=== PATIENT | female | born 1985 | race Caucasian/White ===

== ENCOUNTER 2017-02-20 06:41 | Day surgery (SDC) | payer MEDICAID ==
[~2017-02-20] VITALS: Ht 152.4 cm; Wt 50.8 kg
== END 2017-02-20 11:05 | disposition short-term general hospital (02) ==
LOC: SURGOP 06:41
PROC: 0SBD4ZZ Excision of Left Knee Joint, Percutaneous Endoscopic Approach (ICD-10-PCS; principal; 2017-02-20)
DX: M25.862 Other specified joint disorders, left knee (principal); F17.210 Nicotine dependence, cigarettes, uncomplicated; Z79.891 Long term (current) use of opiate analgesic; Z98.890 Other specified postprocedural states
CPT/HCPCS: J0131; J0690; J1885; J2250; J2270; J2795; J3010

== ENCOUNTER → 2017-03-06 | Outpatient (CLI) | payer MEDICAID | END | disposition short-term general hospital (02) | LOC: CLORTH 08:37 | DX: Z47.89 Encounter for other orthopedic aftercare (principal) ==